=== PATIENT | male | born 1955 | race African-American/Black ===

== ENCOUNTER 2025-09-18 09:06 | Emergency (ER) | payer MEDICAID, MEDICARE ==
[~2025-09-18] VITALS: Ht 172.7 cm; Wt 75.0 kg
[~2025-09-18 09:06] MED LIST: ATOR-2 PO; BENA5TAB40 PO; RIVA10TA PO
[2025-09-18 09:09] VITALS: PULSE 97; RESP 18; O2SAT 99
[2025-09-18 09:13] VITALS: BP 176/89; TEMP 36.7; O2SAT 99
[2025-09-18 09:33] LABS: CLARITY URINE CLOUDY (CLEAR); COLOR URINE DARK YELLOW (YELLOW); GLUCOSE URINE NEGATIVE (NEGATIVE); KETONES URINE TRACE (NEGATIVE); LEUKOCYTE ESTERASE URINE 3+ (NEGATIVE); NITRITE URINE NEGATIVE (NEGATIVE); OCCULT BLOOD URINE 1+ (NEGATIVE); PH URINE 6.5 (4.5-8.0); PROTEIN URINE 1+ (NEGATIVE); SPECIFIC GRAVITY URINE 1.017 (1.005-1.030); UROBILINOGEN URINE 1.0 E.U./dL (0.2-1.0)
[2025-09-18] MEDS ORDERED: DOXY100C5 MT (09:44)
[2025-09-18 09:48] LABS: BACTERIA URINE NONE SEEN; MUCUS URINE TRACE /lpf (NONE/TRACE); RBC URINE 0-2 /hpf (0-2); WBC URINE 50-100 /hpf (0-2)
[2025-09-18] MEDS: CEFTRIAXONE SODIUM 500MG VIAL IM ONE (09:52)
[2025-09-18] MEDS: DOXYCYCLINE HYCLATE 100MG CAPSULE PO ONE (09:53)
[2025-09-19 17:10] LABS: CHLAMYDIA TRACHOMATIS NAA Negative (Negative); NEISSERIA GONORRHOEAE NAA Positive (Negative)
== END 2025-09-18 10:04 | disposition home or self-care (01) ==
LOC: ER 09:06
DX: Z11.3 Encounter for screening for infections with a predominantly sexual mode of transmission (principal); I10 Essential (primary) hypertension; Z79.01 Long term (current) use of anticoagulants; Z86.73 Personal history of transient ischemic attack (TIA), and cerebral infarction without residual deficits
CPT/HCPCS: 87491; 87591; 81003; 87086; 96372; 99283; J0696; Z7610